=== PATIENT | male | born 1940 | race Caucasian/White ===

== ENCOUNTER 2020-09-13 15:04 | Inpatient (IN) | payer OTHER, BC ==
[~2020-09-13] VITALS: Ht 177.8 cm; Wt 63.4 kg
[2020-09-13] VITALS (12 sets, daily range): BP systolic 74–116; BP diastolic 48–81
--- NOTE | ~2020-09-13 | HC ---
[facility] [place] [address] CONSULTATION Name: ADDI CADENA Room #: 361-P [facility] IN ..#: [id number] Admission: 09/13/20 Attend Phys: Flaca Finley MD Discharge: Date of : 40 Report #: [id number] THIS REPORT FOR: cc: Charan Garcia MD, Curtis MD [place],Adrián Vargas MD ~ DATE OF SERVICE: 09/19/2020 HISTORY OF PRESENT ILLNESS: The patient is an 80-year-old male who has a past history known for temporal cavernous hemangioma, status post lesionectomy, history of seizure disorder, history of bladder cancer, status post surgery, extensive tobacco abuse, was airlifted to our facility as a code STEMI. He was noted to have a non-ST elevation WI, acute hypoxic respiratory failure, cardiomyopathy with questionable Takotsubo. He has had paroxysmal atrial fibrillation with elevated heart rates. He is on a tapering dose of amiodarone. He has been closely followed by Cardiology and Pulmonary. We are seeing him in rehabilitation medicine consultation. PAST MEDICAL HISTORY: Includes the brain surgery, temporal cavernous hemangioma, status post lesionectomy back in 2008. He has a history of bladder cancer, status post urostomy in 2008, history of tobacco abuse. History of skin cancers. MEDICATIONS: Please see the full medication listing. ALLERGIES: CONTRAST DYE. SOCIAL HISTORY: Lives with his , house 2-3 steps in, premorbid community ambulator. works 4 days a week. There were 2 sons and one apparently lives close. REVIEW OF SYSTEMS: Did not offer any current complaints of chest pain, shortness of breath or abdominal discomfort. PHYSICAL EXAMINATION: GENERAL: An 80-year-old thin white male in no obvious distress. VITAL SIGNS: Last recorded temperature 36.4, pulse 60, respirations 18, blood pressure 94/55. The patient is alert, pleasant, oriented. He follows basic 1 step commands. HEENT: Facies are symmetric. EXTREMITIES: He has some decreased end range of both upper extremities. He has had a prior left ring finger amputation. Upper body strength is probably a grade 4-/5. He has the urostomy with bag. In his lower extremities, there is no focal calf swelling. His strength is probably a grade 4-/5. Tone appeared reasonably intact. He was able to sit to stand for me. Initially, had some [facility] [address] [place] [address] CONSULTATION Name: ADDI CADENA Jewels Room #: 361-P [facility] IN [facility]#: [id number] Admission: 09/13/20 Attend Phys: Flaca Finley MD Discharge: Date of : 40 Report #: [id number] decreased balance with slight retropulsion. Once up, he had reasonable standing balance. He has a rather wide base. During his last physical therapy visit, he was noted to be min assist sit to stand. ASSESSMENT: An 80-year-old white male with the following problem list: 1. Medical complexity with generalized debilitation. 2. Acute respiratory failure. 3. Severe cardiomyopathy. 4. Non-ST elevation myocardial infarction. 5. Acute chronic obstructive pulmonary disease exacerbation. 6. Community-acquired pneumonia. 7. Hyponatremia. 8. Acute renal insufficiency with likely chronic kidney disease. 9. History of seizure disorder with prior resection of a temporal meningioma. 10. Wedge-shaped perfusion defect and V/Q scan. 11. Bladder cancer with prior urostomy. 12. Nicotine dependence. 13. Prior history of tobacco abuse. PLAN: The patient is a candidate for an acute [address] [place] [address] inpatient rehabilitation stay. Can plan on [address] [place] [address] Rehab transfer when medically ready and a bed available. Discussed with the patient and . By: [id number] Adrián Nagel MD /nt
[2020-09-13] MEDS ORDERED: LAMOTRIGINE25 M3 PO (15:16)
[2020-09-13] MEDS ORDERED: TRAZODONE HCL100 MG PO (15:17)
[2020-09-13] MEDS ORDERED: ASTHALIN PO (15:18)
[2020-09-13] MEDS ORDERED: KEPPRA 500 MG500 MG PO (15:20)
[2020-09-13 15:31] LABS: ABSOLUTE NEUTROPHILS 11.5 thou/uL (1.4-8.2); BASOPHILS 0.7 % (0.0-2.0); EOSINOPHILS 0.4 % (0.0-3.0); HEMATOCRIT 42.4 % (42.0-52.0); HEMOGLOBIN 13.8 gm/dL (14.0-18.0); LYMPHOCYTES 14.6 % (24.0-44.0); MCH 29.9 pg (26.0-34.0); MCHC 32.6 g/dL (28.0-37.0); MCV 91.9 fL (80.0-100.0); MONOCYTES 6.4 % (1.0-8.0); PLATELET COUNT 300 thou/uL (150-400); POLYS 77.9 % (36.0-66.0); RBC 4.61 mil/uL (4.50-6.00); RDW 14.1 % (10.5-14.5); WBC 14.8 thou/uL (4.0-11.0)
[2020-09-13 15:37] LABS: CALCIUM 8.9 mg/dL (8.5-10.1); CREATININE 1.6 mg/dL (0.7-1.3); POTASSIUM 4.4 mmol/L (3.5-5.1)
[2020-09-13 15:47] LABS: ALBUMIN 4.1 g/dL (3.4-5.0); TOTAL BILIRUBIN 0.5 mg/dL (0.2-1.0); TOTAL PROTEIN 7.5 g/dL (6.4-8.2)
[2020-09-13 15:49] LABS: TROPONIN-I 1.09 ng/mL (<0.06)
--- NOTE | 2020-09-13 16:22 | EKG ---
[address] [address] ELECTROCARDIOGRAM REPORT Name: ADDI CADENA [facility]: [facility] [id number] Admission: 09/13/20 Attend Phys: Discharge: Date of : 40 Report #: [id number] [facility] ED Test Date: 2020-09-13 Test Time: 15:10:49 Pat Name: ADDI CADENA Department: Room: Gender: K 8 School Principal: JCMANDI : 1940 Requested By: Adrián Dumont Order Number: [id number] MD: Tunde Chaney Measurements Intervals [place] Rate: 117 P: 84 [place]: 166 QRS: 182 QRSD: 111 T: 75 QT: 328 QTc: 458 Interpretive Statements Sinus tachycardia RBBB Lateral leads are also involved No previous ECG available for comparison Electronically Signed On 09-13-2020 16:22:07 CITY CARRIER ASSISTANT by Tunde Chaney [email or web address] <ELECTRONICALLY SIGNED> By: Tunde Chaney MD 09/13/20 1622 1510 1510 Tunde Chaney MD /EPI
[2020-09-13 16:39] LABS: BE(vivo) -8.3 mmol/L (-2 to +3); HCO3 18.9 mmol/L (22.0-26.0); PCO2 45.1 mmHg (35.0-45.0); sO2 99.2 % (92.0-98.0)
[2020-09-13 16:41] LABS: D-DIMER 0.74 ug/mLFEU (0.19-0.50)
[2020-09-13 17:51] LABS: FOLIC ACID 9.2 ng/mL (8.6-58.9)
[2020-09-13 18:07] LABS: PROTIME 10.4 Seconds (9.3-11.4)
[2020-09-13 18:32] LABS: HEMATOCRIT 38.1 % (42.0-52.0); HEMOGLOBIN 12.4 gm/dL (14.0-18.0); MCH 30.1 pg (26.0-34.0); MCHC 32.6 g/dL (28.0-37.0); MCV 92.4 fL (80.0-100.0); RBC 4.12 mil/uL (4.50-6.00); RDW 14.2 % (10.5-14.5); WBC 14.6 thou/uL (4.0-11.0)
--- NOTE | 2020-09-13 20:32 | NUR ---
A RIGHT UPPER ARM TRIPLE LUMEN PICC WAS PLACED PER POLICY. LINE WAS TRIMMED TO 44CM AND ADVANCED WITHOUT DIFFICULTY. CONFIRMED LINE USING 3CG CONFIRMATION AT THE CAVOATRIAL JUNCTION. LINE SECURED AND RELEASED FOR USE
[2020-09-13 21:31] LABS: BE(vivo) -9.7 mmol/L (-2 to +3); HCO3 18.7 mmol/L (22.0-26.0); PCO2 50.9 mmHg (35.0-45.0); PO2 127.4 mmHg (80.0-100.0); sO2 97.7 % (92.0-98.0)
[2020-09-13 21:32] LABS: pH 7.184 (7.360-7.450)
[2020-09-13 23:44] LABS: BE(vivo) -5.4 mmol/L (-2 to +3); HCO3 21.6 mmol/L (22.0-26.0); PCO2 47.5 mmHg (35.0-45.0); PO2 101.7 mmHg (80.0-100.0); sO2 96.9 % (92.0-98.0)
[2020-09-13 23:46] LABS: pH 7.275 (7.360-7.450)
[2020-09-14] VITALS (27 sets, daily range): BP systolic 84–118; BP diastolic 48–78
--- NOTE | 2020-09-14 00:07 | NUR ---
ASSUMED PT CARE AT 1954 FROM ER. VITAL SIGNS STABLE, PT ORIENTED TO SELF ALONE AND MUMBLING SOME INCOMPRREHENSIBLE SOUNDS. REACTS TO PAINFUL STIMULI AND FOLLOWS SOME COMMANDS. CALLER DR ESTEBAN FO ORDERS PER PH, PT STARTED ON IVT AT 100MLR AFTER AN INITIAL BOLUS OF 250. BP CAME UP, PT RESTING WELL, ABG SLIGHLTLY BETTER AFTER BICARB. WILLC INTINUE TO MONITOR
--- NOTE | 2020-09-14 03:15 | NUR ---
During RN's AM assessment patients neuro status has improved significantly. Able to answer orientation questions. Follow all commands. Carries on conversations appropriately and very pleasant. Will continue to monitor.
[2020-09-14 05:07] LABS: BE(vivo) -4.7 mmol/L (-2 to +3); HCO3 21.2 mmol/L (22.0-26.0); PO2 149.5 mmHg (80.0-100.0); sO2 98.8 % (92.0-98.0)
[2020-09-14 05:52] LABS: ABSOLUTE NEUTROPHILS 9.5 thou/uL (1.4-8.2); BASOPHILS 0.2 % (0.0-2.0); HEMATOCRIT 37.8 % (42.0-52.0); HEMOGLOBIN 12.5 gm/dL (14.0-18.0); LYMPHOCYTES 5.8 % (24.0-44.0); MCH 30.3 pg (26.0-34.0); MONOCYTES 2.9 % (1.0-8.0); PLATELET COUNT 206 thou/uL (150-400); POLYS 91.1 % (36.0-66.0); RBC 4.11 mil/uL (4.50-6.00); WBC 10.4 thou/uL (4.0-11.0)
[2020-09-14 06:17] LABS: BUN 24 mg/dL (7-18); CALCIUM 7.5 mg/dL (8.5-10.1); CHLORIDE 106 mmol/L (98-107); CHOLESTEROL 171 mg/dL (<200); CO2 25 mmol/L (21-32); CREATININE 1.6 mg/dL (0.7-1.3); GLUCOSE 145 mg/dL (74-106); HDL CHOLESTEROL 51 mg/dL (>40); LDL CHOLESTEROL 113 mg/dL (<100); MAGNESIUM 1.8 mg/dL (1.8-2.4); POTASSIUM 4.9 mmol/L (3.5-5.1); TC:HDL 3.4 Ratio (Not establshd); TRIGLYCERIDE 38 mg/dL (<150); VLDL 8 mg/dL (<40)
[2020-09-14 06:19] LABS: ANION GAP 10 mmol/L (7-16)
[2020-09-14 06:20] LABS: SODIUM 141 mmol/L (136-145)
[2020-09-14 06:21] LABS: SERUM ASSESSMENT Clear; TROPONIN-I 3.24 ng/mL (<0.06)
--- NOTE | 2020-09-14 07:00 | EKG ---
[address] [address] ELECTROCARDIOGRAM REPORT Name: ADDI CADENA Room #: 241-P ADM IN M.R.#: [id number] Admission: 09/13/20 Attend Phys: Flaca Finley MD Discharge: Date of : 40 Report #: [id number] [facility] ED Test Date: 2020-09-13 Test Time: 17:06:34 Pat Name: ADDI CADENA Department: Room: 241 Gender: M Grainer Machine: AUDREY : 1940 Requested By: Adrián Dumont Order Number: [id number] : Les Ramires Measurements Intervals [place] Rate: 108 P: 77 [place]: 171 QRS: -90 QRSD: 121 T: 77 QT: 334 QTc: 448 Interpretive Statements Sinus tachycardia Right bundle branch block Compared to ECG 09/13/2020 15:10:49 No significant change Electronically Signed On 09-14-2020 7:00:03 SOCIAL WORK FACULTY MEMBER by Les Ramires [email or web address] <ELECTRONICALLY SIGNED> By: Les Ramires MD, [facility] 09/14/20 0700 1706 1706 Les Ramires MD, FACC /EPI
--- NOTE | 2020-09-14 07:01 | EKG ---
[address] [place] [address] ELECTROCARDIOGRAM REPORT Name: ADDI CADENA Room #: 241-P ADM IN M.R.#: [id number] Admission: 09/13/20 Attend Phys: Flaca Finley MD Discharge: Date of : 40 Report #: [id number] [facility] ED Test Date: 2020-09-13 Test Time: 18:52:36 Pat Name: ADDI CADENA Department: Room: 241 Gender: M Hand Suture Winder: JCHAITAWNY : 1940 Requested By: Adrián Dumont Order Number: [id number] MD: Les Ramires Measurements Intervals [place] Rate: 101 P: 85 [place]: 173 QRS: -93 QRSD: 130 T: 63 QT: 335 QTc: 435 Interpretive Statements Sinus tachycardia Right bundle branch block PROBABLE INFERIOR INFARCT, AGE INDETERMINATE Artifact in lead(s) V4,V5 Compared to ECG 09/13/2020 17:06:34 ST (T wave) deviation now present Myocardial infarct finding still present Electronically Signed On 09-14-2020 7:00:57 PAPER MILL MANAGER by Les Ramires [email or web address] <ELECTRONICALLY SIGNED> By: Les Ramires MD, FACC 09/14/20 0700 51 51 Les Ramires MD, FAC /EPI
--- NOTE | 2020-09-14 14:31 | NUR ---
chart review, pt in from [facility]. unable to visit with ronel at this time. discussed during am rounds. cm called kourtney at home, she had already been her for her 15 min visit. intro to cm and dcp. reports " house, he no longer goes to basement. no longer drives. he uses [facility] for his urostomy and provides other urostomy care. no dme. had hh in past but not in while. he manage own medications. i want to be there when he has hear cath so i want to talk with his dr and someone to call be so i can be there when get the cath"/ kourtney. elma passed on number to hospitalist and bedside nurse to notify .
--- NOTE | 2020-09-14 15:02 | NUR ---
ASSUMED CARE AT 0700. PATIENT'S , SANTANA, CAME TO VISIT FROM [id number] AND SHE WENT INTO PATIENT'S ROOM AND TALKED WITH THE PATIENT. BROUGHT DPOA/ADVANCED DIRECTIVE PAPERWORK. COPIES OF BOTH MADE AND PLACED IN PATIENT'S CHART.
[2020-09-14 17:51] LABS: URINE BILIRUBIN NEGATIVE (Negative); URINE BLOOD TRACE (Negative); URINE CLARITY CLEAR; URINE COLOR YELLOW; URINE GLUCOSE-RANDOM* NEGATIVE (Negative); URINE KETONES NEGATIVE (Negative); URINE NITRITE-REFLEX NEGATIVE (Negative); URINE PROTEIN (DIPSTICK) NEGATIVE (Negative); URINE UROBILINOGEN 0.2 E.U./dl (0.2-1.0)
[2020-09-14 17:53] LABS: URINE LEUKOCYTES-REFLEX 1+ (Negative)
[2020-09-14 17:58] LABS: BACTERIA-REFLEX 1-9 Few /HPF (None Seen); CASTS None Seen /LPF (None Seen); SQUAMOUS 0-3 Few /LPF (0-3); URINE RBC 0-2 Rare /HPF (0-2); URINE WBC-REFLEX 6-15 Few /HPF (0-5)
[2020-09-14 17:59] LABS: CRYSTALS None Seen /LPF (None Seen)
[2020-09-15] VITALS (29 sets, daily range): BP systolic 81–116; BP diastolic 47–73
[2020-09-15 02:25] LABS: BE(vivo) -0.6 mmol/L (-2 to +3); HCO3 22.5 mmol/L (22.0-26.0); PCO2 32.2 mmHg (35.0-45.0); PO2 67.2 mmHg (80.0-100.0); pH 7.463 (7.360-7.450); sO2 94.6 % (92.0-98.0)
[2020-09-15 05:28] LABS: CALCIUM 8.1 mg/dL (8.5-10.1); CREATININE 1.6 mg/dL (0.7-1.3)
[2020-09-15 05:31] LABS: POTASSIUM 3.5 mmol/L (3.5-5.1)
--- NOTE | 2020-09-15 18:05 | NUR ---
PT HAD ACUTE DELIRIUM TYPE EPISODE TODAY IN WHICH HE PULLED AN IV OUT, WAS HAVING HALLUCINATIONS AND WAS VERY CONFUSED. ATIVAN WAS GIVEN WHICH MADE HIS DELIRIUM WORSE. HALDOL WAS THEN GIVEN WHICH SEEMED TO HELP. THE PT NAPPED AND WOKE UP MUCH MORE CALM AND BREATHING EASIER. AT BEDSIDE STATED THAT MR. CADENA HAS BEEN MILDLY CONFUSED WITH INTERMITTENT HALLUCINATIONS FOR A WHILE AT HOME. PT REMAINED ON O2 BY NC ALL DAY. DIURESED WELL. POOR APPETITE, BUT STATES MR. CADENA IS A PICKY EATER. OVERALL, DECREASED WORK OF BREATHING NOTED WITH DIMINISHED ORTHOPNEA AND RESTLESSNESS. PT REMAINS IMPULSIVE, FORGETFUL AND MODERATELY CONFUSED. OVERALL, PT PROGRESSING MODESTLY TOWARD GOALS.
--- NOTE | 2020-09-15 20:36 | NUR ---
THIS RN CALLED Bimal TREJO NP AT 1951 TO REPORT HR 130-165, ST WITH RBBB AFTER EKG WAS OBTAINED. PT DEINED SYMPTOMS OF CHEST PAIN OR SOA. BP 95/65 AND 95/55 NO NEW ORDERS RECIEVED AT THIS TIME.
--- NOTE | 2020-09-15 22:02 | NUR ---
THIS RN CALLED DR QUIJANO WITH CARDIOLOGY FOR REPORT HR 130-170. MD AWARE EKG SHOWS ST WITH RBBB. ASYMPTOMATIC. ONE TIME ORDER FOR METOPROLOL 25MG NOW AND INCREASE DAILY DOSE TO 25MG.
[2020-09-16] VITALS (26 sets, daily range): BP systolic 78–99; BP diastolic 42–64
--- NOTE | 2020-09-16 00:38 | NUR ---
JUST AFTER BREATHING TREAMTENT PATIENT WAS AWAKE AND CONFUSED, TRIED GETTING UP OUT OF BED. WAS SEETLED BY NURSES X 2. CONTINUED TO MONITOR CLOSLY FOR HIGH FALL RISK, AND GETTING OUT OF BED. AFTER ABOUT 15 MIN, PATIENT WAS ABLE TO FALL ASLEEP AGAIN. PATENT HAS HAD TRAZADONE, AND HAD BASELINE CONFUSION, WITH HALLUCINATIONS.
[2020-09-16 05:11] LABS: BE(vivo) 3.6 mmol/L (-2 to +3); HCO3 27.5 mmol/L (22.0-26.0); PCO2 39.2 mmHg (35.0-45.0); PO2 141.9 mmHg (80.0-100.0); pH 7.464 (7.360-7.450); sO2 98.9 % (92.0-98.0)
[2020-09-16 05:26] LABS: ABSOLUTE NEUTROPHILS 8.4 thou/uL (1.4-8.2); HEMATOCRIT 31.8 % (42.0-52.0); HEMOGLOBIN 10.6 gm/dL (14.0-18.0); LYMPHOCYTES 5.2 % (24.0-44.0); MCH 30.4 pg (26.0-34.0); MCHC 33.4 g/dL (28.0-37.0); MONOCYTES 4.9 % (1.0-8.0); PLATELET COUNT 185 thou/uL (150-400); POLYS 89.9 % (36.0-66.0); RBC 3.49 mil/uL (4.50-6.00); RDW 14.2 % (10.5-14.5); WBC 9.3 thou/uL (4.0-11.0)
[2020-09-16 05:41] LABS: ALBUMIN 2.9 g/dL (3.4-5.0); CREATININE 1.4 mg/dL (0.7-1.3); POTASSIUM 3.9 mmol/L (3.5-5.1); TOTAL BILIRUBIN 0.3 mg/dL (0.2-1.0)
--- NOTE | 2020-09-16 06:18 | NUR ---
PATEIENT PROGRESSING TOWARDS GOALS, HEPARIN GTT TITRATION AT GOAL. HEART RATE 90'S. DOWN FROM 4L/NC TO 3/NC OXYGEN. POTASSIUM WITH IN NRMAL RANGE WITH OUT BOLUS THIS AM.
--- NOTE | 2020-09-16 09:00 | NUR ---
ASSUMMED CARE OF THIS PATIENT FROM BAUTISTA CABRERA AT 0700 THIS AM. PATIENT IS ALERT, FINE TREMORS OCC NOTED. CALM AND COOPERATIVE. WILL CONTINUE TO MONITOR.
--- NOTE | 2020-09-16 14:30 | NUR ---
PATIENT NOTED TO BE HYPOTENSIVE. METOPOROL HELD THIS AM. DR LEWIS IN AND AWARE AND DR ESTEBAN NOTIFIED. CVP SET UP AND READING OF 4-[address] ESTEBAN. NS BOLUS INFUSING PER ORDER. AT BEDSIDE. PATIENT IS ALERT AND FEEDING SELF, UP IN THE CHAIR. WILL CONTINUE TO MONITOR.
--- NOTE | 2020-09-16 18:34 | NUR ---
PATIENT IS PROGRESSING TOWARDS OUTCOME GOALS. DENIES HALLUCINATIONS. CALM AND COOPERATIVE. UP IN THE CHAIR MOST OF THE DAY. UNSTEADY WHEN STANDING AND TRANSFERING TO THE BED. BP SL IMPROVED WITH MAP GREATER THAN 65 MM[facility].
[2020-09-17] VITALS (25 sets, daily range): BP systolic 62–116; BP diastolic 36–79
[2020-09-17 03:13] LABS: CALCIUM 8.2 mg/dL (8.5-10.1); CREATININE 1.6 mg/dL (0.7-1.3)
--- NOTE | 2020-09-17 10:56 | NUR ---
chart review. discussed during rounds. hospitalist in visiting with and pt at bedside. possible out of icu and possible will need home o2 if dc home. possible will need rehab. cm discussed with jazlyn at bedside. cm cont to wear face mask and shield. education on home health, post acute rehab and acute rehab " i would like [facility] for rehab. its over hr drive here for me to visit him"/kourtney. referral to be sent to [facility].
--- NOTE | 2020-09-17 14:59 | EKG ---
[address] [place] [address] ELECTROCARDIOGRAM REPORT Name: MORRIS CADENARAMILA Donis Room #: 241-P ADM IN M.R.#: [id number] Admission: 09/13/20 Attend Phys: Flaca Finley MD Discharge: Date of : 40 Report #: [id number] [facility] Test Date: 2020-09-17 Test Time: 08:17:23 Pat Name: ADDI CADENA Department: Room: 241 P Gender: M Care Worker: GEM : 1940 Requested By: Terry Dean Order Number: [id number] MD: Tunde Chaney Measurements Intervals [place] Rate: 88 P: 66 [place]: 169 QRS: 44 QRSD: 135 T: -72 QT: 365 QTc: 442 Interpretive Statements Sinus rhythm Probable left atrial enlargement Right bundle branch block Abnormal T, consider ischemia, lateral leads Compared to ECG 09/13/2020 18:52:36 Electronically Signed On 09-17-2020 14:58:56 CDT by Tunde Chaney [email or web address] <ELECTRONICALLY SIGNED> By: Tunde Chaney MD 09/17/20 1458 6 6 Tunde Chaney MD /JUDD
--- NOTE | 2020-09-17 15:33 | NUR ---
FAXED CLINICAL UPDATE TO [facility] RECEIVED CONFIRMATION.
[2020-09-18] VITALS (19 sets, daily range): BP systolic 75–135; BP diastolic 51–86
--- NOTE | 2020-09-18 04:00 | NUR ---
PATIENT REMAINS RESTLESS. ATTEMPTS TO GET OUT OF BED SEVERAL TIMES. PATIENT REORIENTED NEEDED. AFEBRILE. AT APPROX 0220 PATIENT HR 140-150S. PROFESSOR OF LITERACY NOTIFIED. NO NEW ORDERS GIVEN. WILL KEEP MONITORING.
[2020-09-18 05:28] LABS: CALCIUM 8.8 mg/dL (8.5-10.1); CREATININE 1.5 mg/dL (0.7-1.3); POTASSIUM 4.3 mmol/L (3.5-5.1)
--- NOTE | 2020-09-18 07:19 | EKG ---
[place] [address] [facility] [place] [employer] [place] [address] ELECTROCARDIOGRAM REPORT Name: MORRIS CADENARAMILA Donis Room #: 246-P ADM IN M.R.#: [id number] Admission: 09/13/20 Attend Phys: Flaca Finley MD Discharge: Date of : 40 Report #: [id number] [facility] Test Date: 2020-09-18 Test Time: 02:31:18 Pat Name: ADDI CADENA Department: Room: 246 P Gender: M Elevator Serviceman: SV : 1940 Requested By: Melva Colilns Order Number: [id number] : Les Ramires Measurements Intervals [place] Rate: 141 P: DE: QRS: 66 QRSD: 132 T: -5 QT: 302 QTc: 463 Interpretive Statements AFIB Right bundle branch block Baseline wander in lead(s) V1 Compared to ECG 09/17/2020 08:17:23 Sinus rhythm no longer present T-wave abnormality no longer present Possible ischemia no longer present Electronically Signed On 09-18-2020 7:19:36 CDT by Les Ramires [email or web address] <ELECTRONICALLY SIGNED> By: Les Ramires MD, [facility] 09/18/20 0719 0231 0231 Les Ramires MD, [facility] /EPI
--- NOTE | 2020-09-18 10:45 | NUR ---
discussed during rounds with bedside nurse. cm checked with hospitalist, he is ready for dc to rehab. updates sent to [facility] bed, he will need to be there before 3pm. will cont following as needed for dc needs.
[2020-09-18] MEDS ORDERED: KEPPRA 500 MG500 MG PO (11:24)
[2020-09-18] MEDS ORDERED: PREDNISONE 20 M20 MG PO (11:24)
[2020-09-18] MEDS ORDERED: XARELTO15 MG PO ×2 (11:24→12:56)
[2020-09-18] MEDS ORDERED: XARELTO20 MG PO (11:24)
[2020-09-18] MEDS ORDERED: METOPROLOL SUCC25 M1 PO (11:24)
[2020-09-18] MEDS ORDERED: LEVALBUTER1.25 MG/0. INH (11:24)
[2020-09-18] MEDS ORDERED: VITAMIN D21250 MC1 PO (11:24)
[2020-09-18] MEDS ORDERED: NITROGLYCERIN0.4 MG SUBLING (11:24)
[2020-09-18] MEDS ORDERED: ADULT LOW DOSE81 MG PO (11:24)
[2020-09-18] MEDS ORDERED: PACERONE 200 M200 M1 PO ×2 (11:24→12:56)
[2020-09-18] MEDS ORDERED: PROTONIX 20 MG20 M1 PO (11:24)
[2020-09-18] MEDS ORDERED: DEMADEX20 MG PO ×2 (11:24→12:56)
[2020-09-18] MEDS ORDERED: LIPITOR40 MG PO (11:24)
[2020-09-18] MEDS ORDERED: MIRALAX17 GM PO (11:24)
--- NOTE | 2020-09-18 16:10 | NUR ---
cm notified that [facility] will not accept rt, been on haldol, still in icu, and been there in past and was at baseline, they were getting ready to dc him home. cm education that medsurg not icu. cm called kourtney, cm left skilled list and 5n consult. will cont following as needed for dc needs. cm passed on information to hospitalist and bedside nurse.
--- NOTE | 2020-09-18 16:49 | NUR ---
PT'S , SANTANA, CALLED AND NOTIFIED OF PT TRANSFER TO ROOM 361. QUESTIONS ANSWERED. REASSURANCES AND EMOTIONAL SUPPORT PROVIDED.
--- NOTE | 2020-09-18 16:50 | NUR ---
PT TRANSFERRED TO ROOM 361 VIA WC IN STABLE CONDITION AFTER REPORT CALLED TO RECEIVING RN. PT BELONGINGS AND CHART SENT WITH PT.
[2020-09-19 00:03] VITALS: BP 100/58
[2020-09-19 03:39] VITALS: BP 97/58
[2020-09-19 07:46] VITALS: BP 107/63
--- NOTE | 2020-09-19 08:16 | TEE ---
[facility] [address] [place] [address] TRANSESOPHAGEAL ECHOCARDIOGRAM Name: ADDI CADENA Jewels Room #: 361-P ADM IN M.R.#: [id number] Admission: 09/13/20 Attend Phys: Flaca Finley MD Discharge: Date of : 40 Report #: [id number] THIS REPORT FOR: cc: Charan Garcia MD, Curtis MD [place],Geovani Arias MD ~ APPROVED REPORT Study performed: 09/14/2020 08:30:11 EXAM: Comprehensive 2D, Doppler, and color-flow Echocardiogram Patient Location: ICU Room #: 241 Status: routine BSA: 1.79 HR: 98 bpm BP: 116/75 mmHg Rhythm: NSR Other Information Study Quality: Adequate Indications COPD Dyspnea 2D Dimensions RVDd: 37.69 mm IVSd: 7.73 (7-11mm) LVOT Diam: 18.17 (18-24mm) LVDd: 49.83 mm PWd: 6.58 (7-11mm) Ascending Ao: 27.67 (22-36mm) LVDs: 39.88 (25-40mm) Left Atrium: 29.15 (27-40mm) Aortic Root: 23.62 mm IVC: 25.00 mm Volumes Left Atrial Volume (Systole) Single Plane 4CH: 26.89 mL Single Plane 2CH: 26.25 mL LA ESV Index: 17.00 mL/m2 Aortic Valve AoV Peak Carloz.: 0.93 m/s AO Peak Gr.: 3.43 mmHg LVOT Max P.53 mmHg LVOT Max V: 0.62 m/s [facility] [address] [place] [address] TRANSESOPHAGEAL ECHOCARDIOGRAM Name: ADDI CADENA Room #: 361-P [facility] IN [facility].#: [id number] Admission: 09/13/20 Attend Phys: Zoya Cote Discharge: Date of : 40 Report #: [id number] Vmax: 1.73 cm2 Mitral Valve E/A Ratio: 1.6 MV Decel. Time: 118.67 ms MV E Max Carloz.: 0.90 m/s MV A Carloz.: 0.55 m/s MV PHT: 34.41 ms IVRT: 69.20 ms Pulmonary Valve PV Peak Carloz.: 1.05 m/s PV Peak Gr.: 4.37 mmHg Pulmonary Vein P Vein S: 0.16 m/s P Vein A: 0.34 m/s P Vein D: 0.34 m/s P Vein A Dur.: 92.3 msec P Vein S/D Ratio: 0.47 Tricuspid Valve TR Peak Carloz.: 3.25 m/s TR Peak Gr.: 42.20 mmHg PA Pressure: 52.00 mmHg Left Ventricle The left ventricle is normal size. There is hypokinesis in the mid to apical anteroseptal and distal inferior easton. There is normal left ventricular wall thickness. Left ventricular systolic function is moderate to severely decreased. Possible Takotsubo cardiomyopathy. LVEF is 35%. Grade II - pseudonormal filling dynamics. Right Ventricle The right ventricle is normal size. The right ventricular systolic function is normal. Atria The left atrium size is normal. The right atrium size is normal. Aortic Valve The aortic valve is normal in structure. No aortic regurgitation is present. There is no aortic valvular stenosis. Mitral Valve The mitral valve is normal in structure. There is no mitral valve regurgitation noted. No evidence of mitral valve stenosis. [facility] [address] [place] [address] TRANSESOPHAGEAL ECHOCARDIOGRAM Name: ADDI CADENA Jewels Room #: 361-P ADM IN .R.#: [id number] Admission: 09/13/20 Attend Phys: Zoya Cote Discharge: Date of : 40 Report #: [id number] Tricuspid Valve The tricuspid valve is normal in structure. There is mild tricuspid regurgitation. Estimated PAP 50 mmHg. There is moderate pulmonary hypertension. Pulmonic Valve The pulmonary valve is normal in structure. There is no pulmonic valvular regurgitation. Great Vessels The aortic root is normal in size. IVC is dilated and collapses <50% with inspiration. Pericardium There is no pericardial effusion. <Conclusion> The left ventricle is normal size. There is normal left ventricular wall thickness. Left ventricular systolic function is moderate to severely decreased. Possible Takotsubo cardiomyopathy. The right ventricle is normal size. The left atrium size is normal. The aortic valve is normal in structure. There is no mitral valve regurgitation noted. There is mild tricuspid regurgitation. Estimated PAP 50 mmHg. <ELECTRONICALLY SIGNED> By: Geovani Walsh MD 09/14/20 1020 1020 1020 Geovani Walsh MD /INF
--- NOTE | 2020-09-19 08:22 | NUR ---
kourtney called stated she had spoken with the kids and if ok for him to do rehab here that is what they want for 1st choice. family does not have 2nd choice. Vaughnn was notified to alia.
--- NOTE | 2020-09-19 09:02 | NUR ---
[facility] ADVANCED LETTER WITHIN PATIENTS CHART, WITH A PREFERRED SKILLED LIST IF NEEDED.
--- NOTE | 2020-09-19 10:03 | EKG ---
[place] [address] [facility] [place] [address] ELECTROCARDIOGRAM REPORT Name: ADDI CADENA Jewels Room #: 361-P ADM IN M.R.#: [id number] Admission: 09/13/20 Attend Phys: Flaca Finley MD Discharge: Date of : 40 Report #: [id number] [facility] Test Date: 2020-09-19 Test Time: 07:21:54 Pat Name: ADDI CADENA Department: Room: 361 P Gender: M Ash Collector: GEM : 1940 Requested By: Terry Dean Order Number: [id number] MD: Les Ramires Measurements Intervals [place] Rate: 57 P: 60 [place]: 155 QRS: -6 QRSD: 110 T: 237 QT: 445 QTc: 434 Interpretive Statements Sinus rhythm Probable left atrial enlargement RSR' in V1 or V2, right VCD or RVH Abnormal T, probable ischemia, lateral leads Compared to ECG 09/18/2020 02:31:18 Right ventricular hypertrophy now present RSR' in V1 or V2 now present T-wave abnormality now present Possible ischemia now present Atrial fibrillation no longer present Right bundle-branch block no longer present Electronically Signed On 09-19-2020 10:03:40 CDT by Les Ramires [email or web address] <ELECTRONICALLY SIGNED> By: Les Ramires MD, [facility] 09/19/20 1003 0 0 Les Ramires MD, [facility] /EPI
[2020-09-19 12:24] VITALS: BP 94/55
[2020-09-19 12:32] LABS: CREATININE 1.7 mg/dL (0.7-1.3)
--- NOTE | 2020-09-19 14:28 | NUR ---
DISCHARGE NOTE: SW reviewed chart and spoke with nursing and attending physician. Pt was transferred to 3W from ICU and is medically stable for discharge. [facility] consulted and can accept pt today. Pt will need repeat COVID test prior to discharge to [facility]. Test to be completed this afternoon. Pt to discharge to [facility] later today after COVID results are available. SW left voice messages for pt's , Lisa. PRISCILLA met with pt and at bedside to provide update. Both are agreeable with discharge plan. Rehab CM to follow and assist as needed with discharge planning.
[2020-09-19 19:59] VITALS: BP 110/59
[2020-09-19 20:29] VITALS: BP 110/59
--- NOTE | 2020-09-19 22:17 | NUR ---
PT IS TRANSFERRING TO [facility]. REPORT CALLED AND GIVEN TO JENINFER. FINISHING DISCHARGE PAPERWORK.
== END 2020-09-19 22:24 | DRG 871 ==
LOC: ER 15:04 → ICU 16:59 → EROBS 16:59 → ICU 19:50 → 3W 09-18 17:00
PROVIDERS: Emergency Medicine; Internal Medicine; Nurse Practitioner; Pediatrics; ADMIT Hospitalist; ATTEND Hospitalist
PROC: B548ZZA Ultrasonography of Superior Vena Cava, Guidance (ICD-10-PCS; principal; 2020-09-13)
PROC: 02HV33Z Insertion of Infusion Device into Superior Vena Cava, Percutaneous Approach (ICD-10-PCS; principal; 2020-09-13)
PROC: 5A09357 Assistance with Respiratory Ventilation, Less than 24 Consecutive Hours, Continuous Positive Airway Pressure (ICD-10-PCS; principal; 2020-09-13)
PROC: 5A09357 Assistance with Respiratory Ventilation, Less than 24 Consecutive Hours, Continuous Positive Airway Pressure (ICD-10-PCS; 2020-09-14)
PROC: B24BZZ4 Ultrasonography of Heart with Aorta, Transesophageal (ICD-10-PCS; 2020-09-14)
PROC: 5A09357 Assistance with Respiratory Ventilation, Less than 24 Consecutive Hours, Continuous Positive Airway Pressure (ICD-10-PCS; 2020-09-15)
DX: A41.9 Sepsis, unspecified organism (principal); J96.01 Acute respiratory failure with hypoxia; I21.4 Non-ST elevation (NSTEMI) myocardial infarction; I50.21 Acute systolic (congestive) heart failure; J18.9 Pneumonia, unspecified organism; R65.21 Severe sepsis with septic shock; N17.9 Acute kidney failure, unspecified; E87.1 Hypo-osmolality and hyponatremia; I51.81 Takotsubo syndrome; I42.9 Cardiomyopathy, unspecified; J44.1 Chronic obstructive pulmonary disease with (acute) exacerbation; J44.0 Chronic obstructive pulmonary disease with (acute) lower respiratory infection; T88.6XXA Anaphylactic reaction due to adverse effect of correct drug or medicament properly administered, initial encounter; G40.909 Epilepsy, unspecified, not intractable, without status epilepticus; D64.9 Anemia, unspecified; E55.9 Vitamin D deficiency, unspecified; F41.9 Anxiety disorder, unspecified; T50.8X5A Adverse effect of diagnostic agents, initial encounter; I48.0 Paroxysmal atrial fibrillation; Y82.8 Other medical devices associated with adverse incidents; Z20.822 Contact with and (suspected) exposure to COVID-19; Z85.828 Personal history of other malignant neoplasm of skin; Z85.51 Personal history of malignant neoplasm of bladder; Z79.899 Other long term (current) drug therapy; Z91.041 Radiographic dye allergy status; Z87.891 Personal history of nicotine dependence; Y92.89 Other specified places as the place of occurrence of the external cause
CPT/HCPCS: 10078; 10203; 10879; 27000

== ENCOUNTER 2020-09-19 13:37 | Inpatient (IN) | payer OTHER, BC ==
[~2020-09-19] VITALS: Ht 177.8 cm; Wt 61.6 kg
--- NOTE | ~2020-09-19 | HC ---
[facility] [place] [address] CONSULTATION Name: ADDI CADENA Room #: 514-P [facility] IN .R.#: [id number] Admission: 09/19/20 Attend Phys: Adrián Nagel MD Discharge: Date of : 40 Report #: [id number] THIS REPORT FOR: cc: Charan Garcia MD, Curtis MD Deutch,Michael Loving. PhD ~ DATE OF SERVICE: 09/23/2020 NEUROBEHAVIORAL STATUS EXAM ATTENDING PHYSICIAN: Adrián Nagel MD DIRECTOR INFORMATICS: Michael Helton, PhD CLINICAL PRESENTATION: The patient is an 80-year-old male admitted to the rehabilitation unit at [facility] for a comprehensive inpatient rehabilitation program. He was airlifted to the hospital after having experienced a heart attack. His medical problem list that includes chronic obstructive pulmonary disease, dyspnea, non-ST elevated myocardial infarction, current assessment for COVID-19, systemic inflammatory response syndrome. 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 A complete description of his medical condition and history can be found in his medical record. Neuropsychological consultation was requested to provide assistance in the assessment of cognitive and emotional status and to provide recommendations and services. Prior to this most recent admission, he was living at home with the assistance of his . The patient has 3 children. He is a high school graduate with 1 year of college. 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 His reports that she was managing medication, finances and nutrition. He has discontinued driving since __ following a bladder surgery in 2008. The patient has had significant cognitive deficits for the last 3-4 years. In 2018, he reported to have had two incidents of coding; once at the [facility] and then prior incident in another hospital that led to his transfer to the [facility] in 2003, he was diagnosed with a seizure disorder and also had blood clots. Difficulty with the names of her grandchildren are reported. TECHNIQUES UTILIZED: Clinical interview, review of medical records, staff consultation and behavioral observation, family interview -- , mini mental status exam 2 standard version and clock drawing. [facility] [address] [place] [address] CONSULTATION Name: ADDI CADENA Room #: 514-P [facility] IN .R.#: [id number] Admission: 09/19/20 Attend Phys: Adrián Nagel MD Discharge: Date of : 40 Report #: [id number] EXAMINATION FINDINGS: The patient was alert and cooperative with the assessment. He described being very short of breath prior to his hospitalization. He does not present with aphasia. Thoughts are logical and goal oriented. There is no evidence of thought disorder. He indicated symptoms to include memory, word finding deficits and decreased appetite. The patient does not report symptoms of depression or anxiety. Performance on the MMSE 2 brief version is extremely low with a raw score of 9/16. He was 3/3 for initial registration, 4/5 for orientation to time, 2/[address] and 0/3 for immediate recall of 3 items after a brief time delay and distraction. Performance on the MMSE 2 standard version was extremely low with a raw score of 20/30. He was 3/5 for serial sevens, 2/2 for naming, 1/1 for repetition, 3/3 for auditory comprehension. He could read and follow single command and write a sentence. The patient is not able to copy a simple geometric design. The patient was having trouble with clock drawing in regard to visual spatial construction. Executive dysfunction is suggested. The patient is presenting with severe deficits in memory and variability in orientation. Attention and concentration is poor along with visual spatial and perceptual deficits. This type of presentation suggests a neurodegenerative disorder, neurocognitive deficits, likely due to medical etiology including cardiomyopathy and vascular disease, seizure disorder may also be contributing. DIAGNOSTIC IMPRESSION: Major neurocognitive disorder (dementia) due to medical etiology including vascular disease and history of seizure disorder and history of temporal meningioma resection. It is clinically determined likely in the moderate range severe cognitive deficits. RECOMMENDATIONS: The patient had been at home by himself for extended periods of time. It may be that he will require supervision to maintain safety. Assistance with management of medication, finances and nutrition are necessary. Continued assistance in compensatory techniques and family education in order for him to maintain safety. Thank you very much for allowing me to provide the consultation on this patient. By: [id number] Michael Helton, PhD /nt
[~2020-09-19 13:37] MED LIST: ADULT LOW DOSE81 MG PO; ASTHALIN PO; DEMADEX20 MG PO; KEPPRA 500 MG500 MG PO; LAMOTRIGINE25 M3 PO; LEVALBUTER1.25 MG/0. INH; LIPITOR40 MG PO; METOPROLOL SUCC25 M1 PO; MIRALAX17 GM PO; NITROGLYCERIN0.4 MG SUBLING; PACERONE 200 M200 M1 PO; PREDNISONE 20 M20 MG PO; PROTONIX 20 MG20 M1 PO; TRAZODONE HCL100 MG PO; VITAMIN D21250 MC1 PO; XARELTO15 MG PO; XARELTO20 MG PO
[2020-09-19 22:50] VITALS: BP 110/64
--- NOTE | 2020-09-20 05:21 | NUR ---
PT ADMITTED TO [address] [place] [address] LATE THIS EVENING FROM [facility]. COVID TEST NEGATIVE BEFORE TRANSFER. PT DENIES ANY CHEST PAIN AT THIS TIME AND VSS. SAT 95% ON RA. SAT REMAINED WNL WITH EACH SPOT CHECK. ASST WITH REPOSITION FOR COMFORT. ADMIT HX AND ASSESSMENT COMPLETED. UROSTOMY DRAINING LARGE AMOUNT OF CLEAR YELLOW URINE. PT PICC LINE FLUSHED AND BLOOD DRAW COMPLETED IN THE MORNING. PT VERY IMPULSIVE AND TRYING TO CLIMB OUT OF BED FREQUENTLY DURING THE NIGHT. PT DID GET HIS SLEEP MEDICATION WHICH DID NOT WORK WELL. WILL CONTINUE TO MONITOR FREQUENTLY. PT VERY FORGETFUL.
[2020-09-20 05:46] LABS: HEMATOCRIT 35.5 % (42.0-52.0); HEMOGLOBIN 11.6 gm/dL (14.0-18.0); MCHC 32.6 g/dL (28.0-37.0); MCV 91.9 fL (80.0-100.0); RBC 3.87 mil/uL (4.50-6.00); RDW 14.3 % (10.5-14.5); WBC 13.5 thou/uL (4.0-11.0)
[2020-09-20 05:59] LABS: CALCIUM 8.6 mg/dL (8.5-10.1); CREATININE 1.8 mg/dL (0.7-1.3); POTASSIUM 3.8 mmol/L (3.5-5.1)
--- NOTE | 2020-09-20 12:15 | NUR ---
chart review. cm visited with pt and at bedside, cm cont to wear mask and face shield during visit. had her mask on as well. cm working with pt and while he was in icu here as well. they live in hose, 3 steps enter, 10 steps inside home. hh in past and been to [facility] bed [facility] in past. 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 leif was up in recliner for lunch, noted he was not eating cm, offered to see if could get him something else , offered yogurt " ice cream, all he likes, hard time tasting things for year now"/ kourtney. cm passed on to bedside nurse about meals and that at home he sleeps in recliner chair.
--- NOTE | 2020-09-20 12:56 | NUR ---
VASCULAR ACCESS NURSE ROUNDING. THIS PATIENT WAS TRANSFERED TO REHAB WITH A PICC LINE IN THE RIGHT UPPER ARM. THIS PATIENT IS NO LONGER ON IV MEDS. RECOMMEND REMOVING PICC TO DECREASE THE RISK OF A BLOOD STREAM INFECTION NOW THAT THE LINE IS NO LONGER NECESSARY.
[2020-09-20 19:54] VITALS: BP 83/45
--- NOTE | 2020-09-21 00:41 | NUR ---
PT ALERT AND ORIENTED X 2, CONFUSED AT TIMES. IMPULSIVE AT TIMES. UROSTOMY INTACT AND PATENT WITH CLEAR YELLOW URINE. RIGHT PICC LINE INTACT. PT DENIES PAIN OR DISCOMFORT. BED ALARM ON FOR SAFETY. PT APPEARS TO BE SLEEPING ON HOURLY ROUNDS.
[2020-09-21 07:33] VITALS: BP 113/64
--- NOTE | 2020-09-21 15:17 | NUR ---
PT ALERT AND ORIENTED TIMES FOUR. VSS. PT DENEIS PAIN/SOA. PT WORKED VERY WELL WITH PT/OT. PT TOLERATES MEDS AND MEALS. PT AT BEDSIDE. WILL CONTINUE TO MOONITOR.
[2020-09-21 20:00] VITALS: BP 95/41
[2020-09-22 04:56] LABS: HEMATOCRIT 37.5 % (42.0-52.0); HEMOGLOBIN 12.5 gm/dL (14.0-18.0); MCH 30.3 pg (26.0-34.0); MCHC 33.4 g/dL (28.0-37.0); MCV 90.8 fL (80.0-100.0); PLATELET COUNT 295 thou/uL (150-400); RBC 4.13 mil/uL (4.50-6.00); RDW 14.2 % (10.5-14.5); WBC 13.5 thou/uL (4.0-11.0)
--- NOTE | 2020-09-22 05:09 | NUR ---
RECIEVED CARE OF THIS PATIENT AT 1900. PATIENT ALERT AND ORIENTED X4. UP WITH SBA ONLY. IMPULSIVE AT TIMES. HAS UROSTOMY WHICH HE CARES FOR HIMSELF. PATENT WITH YELLOW URINE. HAS PERIODS OF CONFUSION. DENIES PAIN. SLEPT MOST OF NIGHT.
[2020-09-22 05:45] LABS: CALCIUM 8.6 mg/dL (8.5-10.1); CREATININE 1.9 mg/dL (0.7-1.3); MAGNESIUM 1.6 mg/dL (1.8-2.4); POTASSIUM 3.7 mmol/L (3.5-5.1)
[2020-09-22 06:38] LABS: ABSOLUTE NEUTROPHILS 11.7 thou/uL (1.4-8.2); PLATELET ESTIMATE NORMAL
[2020-09-22 08:41] VITALS: BP 96/56
--- NOTE | 2020-09-22 18:38 | NUR ---
PATIENT ALERT ORIENTED X4. UP TO RECLINER AND DOES NOT SEEM TO BE IN PAIN. HE BARELY EATS AND ONLY DRINKS DURING MEALS. ENCOURAGED TO NO AVAIL. WILL CONT WITH PLAN OF CARE.
[2020-09-22 19:39] VITALS: BP 117/94
--- NOTE | 2020-09-22 23:08 | NUR ---
PT REMEMBERED TO ASK FOR HIS MEDICATION THIS EVENING.
--- NOTE | 2020-09-23 00:28 | NUR ---
PT ASSESSMENT COMPLETED AND VSS. MEDS GIVEN ORDERED AND WELL TOLERATED. FALL PRECAUTIONS IN PLACE. PT STEADY IN THE ROOM WHEN UP MOD I. AT HS PT HAS A BED ALARM ON AND FALL PRECAUTIONS IN PLACE. PT TAKING CARE OF HIS OWN UROSTOMY AND ATTACHED IT TO A MILLER BAG. PT SLEEPING WELL AT THIS TIME. DENIES NEEDS. WILL CONTINUE TO MONITOR FREQUENTLY.
[2020-09-23 08:00] VITALS: BP 87/58
[2020-09-23 11:15] LABS: ABSOLUTE NEUTROPHILS 13.7 thou/uL (1.4-8.2); BASOPHILS 0.1 % (0.0-2.0); EOSINOPHILS 0.1 % (0.0-3.0); HEMATOCRIT 38.3 % (42.0-52.0); HEMOGLOBIN 12.6 gm/dL (14.0-18.0); LYMPHOCYTES 7.2 % (24.0-44.0); MCH 30.3 pg (26.0-34.0); MCHC 32.8 g/dL (28.0-37.0); MCV 92.5 fL (80.0-100.0); MONOCYTES 8.5 % (1.0-8.0); PLATELET COUNT 315 thou/uL (150-400); POLYS 84.1 % (36.0-66.0); RBC 4.14 mil/uL (4.50-6.00); RDW 14.6 % (10.5-14.5); WBC 16.3 thou/uL (4.0-11.0)
[2020-09-23 11:27] LABS: ALBUMIN 3.7 g/dL (3.4-5.0); CALCIUM 8.6 mg/dL (8.5-10.1); CREATININE 2.2 mg/dL (0.7-1.3); MAGNESIUM 1.6 mg/dL (1.8-2.4); POTASSIUM 3.4 mmol/L (3.5-5.1); TOTAL BILIRUBIN 0.5 mg/dL (0.2-1.0); TOTAL PROTEIN 6.6 g/dL (6.4-8.2)
--- NOTE | 2020-09-23 18:17 | NUR ---
PATIENT CONT TO SLEEP AT THIS TIME. RESPIRATIONS ARE EVEN AND UNLABORED. UP AD TRACI WITH MINIMAL ASSIST.
[2020-09-23 19:39] VITALS: BP 86/48
--- NOTE | 2020-09-23 22:25 | NUR ---
ASSUMED CARE OF PT AT 1900. PT IS A&OX4. IS ON ROOM AIR. DENIES PAIN. IS STABLE. IS UP WITH SBA, GB. REFUSES TO CALL FOR ASSISTANCE. PT IS IMPULSIVE. HAS STEADY GAIT. EDUCTION PROVIDED. FALL PRECAUTIONS & HOURLY ROUNDING CONTINUED THIS SHIFT. PT HAS UROSTOMY IN WHICH HE MAINTAINS. LABS & VITALS REVIEWED. WILL CONTINUE TO MONITOR. IS ACROSS FROM NURSE STATION. CALL LIGHT WITHIN REACH. WILL CONTINUE TO MONITOR.
[2020-09-24 05:20] LABS: HEMOGLOBIN 11.5 gm/dL (14.0-18.0)
[2020-09-24 05:22] LABS: MCH 30.3 pg (26.0-34.0); MCHC 32.8 g/dL (28.0-37.0); MCV 92.5 fL (80.0-100.0); PLATELET COUNT 279 thou/uL (150-400); RBC 3.79 mil/uL (4.50-6.00); RDW 14.8 % (10.5-14.5)
[2020-09-24 05:43] LABS: CALCIUM 8.1 mg/dL (8.5-10.1); CREATININE 2.1 mg/dL (0.7-1.3); MAGNESIUM 1.6 mg/dL (1.8-2.4); POTASSIUM 3.4 mmol/L (3.5-5.1)
[2020-09-24 08:00] VITALS: BP 87/50
[2020-09-24 08:37] LABS: ABSOLUTE NEUTROPHILS 8.4 thou/uL (1.4-8.2); PLATELET ESTIMATE NORMAL
--- NOTE | 2020-09-24 09:25 | NUR ---
PATIENT DID REMEMBER TO CALL FOR HIS AM BREAKFAST TIME MEDS, AND PT REPORTED THAT HE ALSO REMEMBERED HIS JOB CHECKER MED THAT IS FOR ACID REFLUX, WHICH HE WOULD HAVE TAKEN WITH THE PREVIOUS SHIFT RN.
--- NOTE | 2020-09-24 15:05 | NUR ---
CONSULT [id number] WAS COMPLETED BY THIS CEMENT MASON HELPER TODAY. PATIENT WAS NOT AVAILABLE ON 09/20/20.
--- NOTE | 2020-09-24 18:06 | NUR ---
REPORT GIVEN TO ONCOMING SHIFT. PT PARTICIPATED IN THERAPIES WELL. NO C/O PAIN, AND PT MANAGED OWN UROSTOMY, DISCUSSING WITH RN.
[2020-09-24 19:43] VITALS: BP 80/46
--- NOTE | 2020-09-25 01:35 | NUR ---
PT ALERT AND ORIENTED X 4. UROSTOMY INTACT WITH CLEAR YELLOW URINE. BP 80/46 AT HS. METOPROLOL HELD. ASYMPTOMATIC WITH LOW BP. PT DENIES PAIN OR DISCOMFORT. BED ALARM ON FOR SAFETY. PT APPEARS TO BE SLEEPING ON HOURLY ROUNDS.
[2020-09-25 07:10] VITALS: BP 104/64
--- NOTE | 2020-09-25 12:53 | NUR ---
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 mod/severe memory cog, fmla paperwork. mod I. dc , outpt pt only. mod/severe cog and memory. needs to follow up with pcp. should look into life alert, he been using cell phone to call family if needs help.
[2020-09-25] MEDS ORDERED: ELIQUIS2.5 MG PO (14:27)
--- NOTE | 2020-09-25 15:05 | PLAN ---
[facility] [place] [address] REHAB UNIT PLAN OF CARE Name: ADDI CADENA Room #: 514-P ADM IN M.R.#: [id number] Admission: 09/19/20 Attend Phys: Adrián Nagel MD Discharge: Date of : 40 Report #: [id number] THIS REPORT FOR: cc: Charan Garcia MD,Charan Nagel,Adrián Vargas MD ~ DATE OF SERVICE: 09/21/2020 PROGRESS NOTE/OVERALL PLAN OF CARE SUBJECTIVE: The patient is seen back today in followup. He is alert, pleasant. He notes, he is feeling better. Temperature 36.3, pulse 65, respirations 20, blood pressure 113/64. No focal calf swelling. He has a good appetite. He notes he is sleeping better. Transfers are supervision with gait standby assistance 300 feet without a device. He is going up and down 12 steps, standby assistance. Lower body dressing with supervision. Upper body dressing, min assist. He does have moderate comprehensive deficits. He has moderate cognitive deficits with severe memory deficits. ASSESSMENT: 1. Medical complexity with generalized debilitation. 2. Non-ST elevation myocardial infarction. 3. Acute respiratory failure with community-acquired pneumonia and acute exacerbation of chronic obstructive pulmonary disease. 4. Severe cardiomyopathy. 5. Acute renal insufficiency superimposed on chronic kidney disease. 6. Possible pulmonary embolism, on anticoagulation. 7. History of seizure disorder with history of temporal meningioma resection. 8. Bladder cancer with previous urostomy. 9. Tobacco abuse. PLAN: The overall plan of care is based on the preadmission screen and information garnered from therapy assessments. 1. Estimated length of stay is probably fairly short. We would anticipate he should be able to discharge within 7-10 days. 2. Medical prognosis is reasonably good. 3. Anticipated interventions includes the interdisciplinary acute inpatient rehabilitation program. 4. Anticipated functional outcomes would be for the patient to become modified independent with transfers, mobility, ADLs as well as cognition and comprehension, so that he can return back to the home setting. 5. Discharge destination would be back home with his . She is planning on doing some FMLA time at home with him and we discussed this today. 6. Expected therapy by discipline includes PT, OT and speech 1 hour per day each five days a week throughout the duration [place] [address] REHAB UNIT PLAN OF CARE Name: ADDI CADENA Room #: 514-P [facility] IN [facility]#: [id number] Admission: 09/19/20 Attend Phys: Adrián Nagel MD Discharge: Date of : 40 Report #: [id number] rehabilitation stay. ADDENDUM: The patient's prognosis for significant practical improvement within a reasonable period of time appears good. Given the patient's complex medical condition and risk of further medical complication, rehabilitation services could not be safely provided at a lower level of care such as a prison facility. <ELECTRONICALLY SIGNED> By: Adrián Nagel MD 09/25/20 1505 1405 1652 Adrián Nagel MD /IRIS
--- NOTE | 2020-09-25 17:54 | NUR ---
PT ALERT AND ORIENTED TIMES FOUR. VSS. PT DENIES PAIN/SOA. PT TOLERATES MEDS AND MEALS. PT WORKED WELL WITH PT/OT TODAY. PT AT BEDSIDE THIS AFTERNOON. PT EXCITED FOR POSSIBLE DISCHARGE HOME TOMORROW.
[2020-09-25 19:38] VITALS: BP 99/50
--- NOTE | 2020-09-26 03:14 | NUR ---
ASSUMED CARE OF PT AT SHIFT CHANGE. PT IS AOX4 AND LETS NEEDS BE KNOWN. FALL PRECAUTION IN PLACE. PT DENIED PAIN NAUSEA OR SOA. ASSESSMENT CHARTED. PT ASKED FOR MEDS IN A TIMELY MANNER. UROSTOMY IN PLACE AND IS CONEECTED TO A DRAINAGE BAG. PT WAS ABLE TO GET COMFORTABLE AND SLEEP PART OF THE SHIFT. VSS AND NO S/S OF ACUTE DISTRESS. WILL CONTINUE TO MONITOR.
[2020-09-26 07:15] VITALS: BP 101/57
[2020-09-26] MEDS ORDERED: LIPITOR40 MG PO (08:33)
[2020-09-26] MEDS ORDERED: PACERONE 200 M200 M1 PO ×2 (08:33→10:03)
[2020-09-26] MEDS ORDERED: NITROGLYCERIN0.4 MG SUBLING (08:33)
[2020-09-26] MEDS ORDERED: DEMADEX20 MG PO (08:33)
[2020-09-26 09:47] VITALS: BP 101/57
--- NOTE | 2020-09-26 09:53 | NUR ---
dcp for today, home with , she going to talk fmla to stay with him. cm delivered life alert brochure and senior blue book. kourtney will be here around noon to pick him up. rx for outpt physical therapy placed on front of chart by bedside nurse.
[2020-09-26] MEDS ORDERED: VITAMIN D325 MC1 PO (11:16)
[2020-09-26] MEDS ORDERED: XARELTO15 MG PO (11:16)
[2020-09-26] MEDS ORDERED: MIDODRINE HCL2.5 M1 PO (11:16)
--- NOTE | 2020-09-26 13:30 | NUR ---
PT ALERT AND ORIENTED TIMES FOUR. VSS. PT DENIES PAIN/SOA. PT TOLERATES MEDS AND MEALS. PLANS FOR DISCHARGE TODAY. WILL CONTINUE TO MONITOR.
== END 2020-09-26 12:45 | disposition home or self-care (01) | DRG 947 ==
PROVIDERS: Internal Medicine; Nurse Practitioner; ADMIT Physical Medicine & Rehabilitation; ATTEND Physical Medicine & Rehabilitation
DX: R53.81 Other malaise (principal); I21.4 Non-ST elevation (NSTEMI) myocardial infarction; J18.9 Pneumonia, unspecified organism; J96.01 Acute respiratory failure with hypoxia; I50.21 Acute systolic (congestive) heart failure; I42.9 Cardiomyopathy, unspecified; J44.1 Chronic obstructive pulmonary disease with (acute) exacerbation; J44.0 Chronic obstructive pulmonary disease with (acute) lower respiratory infection; N17.9 Acute kidney failure, unspecified; E87.1 Hypo-osmolality and hyponatremia; N18.9 Chronic kidney disease, unspecified; G40.909 Epilepsy, unspecified, not intractable, without status epilepticus; F01.50 Vascular dementia, unspecified severity, without behavioral disturbance, psychotic disturbance, mood disturbance, and anxiety; I48.0 Paroxysmal atrial fibrillation; E87.6 Hypokalemia; E83.42 Hypomagnesemia; I95.9 Hypotension, unspecified; Z79.01 Long term (current) use of anticoagulants; Z85.51 Personal history of malignant neoplasm of bladder
CPT/HCPCS: 10112

== ENCOUNTER → 2020-10-03 | Outpatient (CLI) | payer OTHER, BC ==
[~2020-10-03] MED LIST changes: +ELIQUIS2.5 MG PO; +MIDODRINE HCL2.5 M1 PO; +VITAMIN D325 MC1 PO
== END ==
LOC: SJCVC 10:48
PROVIDERS: ATTEND Internal Medicine Cardiovascular Disease
DX: R94.31 Abnormal electrocardiogram [ECG] [EKG] (principal); I45.10 Unspecified right bundle-branch block; I25.2 Old myocardial infarction; N18.9 Chronic kidney disease, unspecified; G40.909 Epilepsy, unspecified, not intractable, without status epilepticus; I25.5 Ischemic cardiomyopathy; F17.200 Nicotine dependence, unspecified, uncomplicated; Z88.8 Allergy status to other drugs, medicaments and biological substances; Z79.899 Other long term (current) drug therapy

== ENCOUNTER → 2020-10-10 | Outpatient (CLI) | payer OTHER, BC | LOC: SJCVCIMAG 10:00 | PROVIDERS: ATTEND Internal Medicine Cardiovascular Disease | DX: I45.10 Unspecified right bundle-branch block (principal); R06.00 Dyspnea, unspecified; I48.0 Paroxysmal atrial fibrillation; G90.9 Disorder of the autonomic nervous system, unspecified; J44.9 Chronic obstructive pulmonary disease, unspecified; I25.2 Old myocardial infarction; N18.9 Chronic kidney disease, unspecified; I51.81 Takotsubo syndrome; F17.200 Nicotine dependence, unspecified, uncomplicated; Z88.8 Allergy status to other drugs, medicaments and biological substances; Z79.899 Other long term (current) drug therapy ==

== ENCOUNTER 2020-12-19 15:48 | Inpatient (IN) | payer OTHER, BC ==
[~2020-12-19] VITALS: Ht 177.8 cm; Wt 66.7 kg
--- NOTE | ~2020-12-19 | EMS ---
[facility] [address] [place] [address] EMS Patient Care Report Name: ADDI CADENA Room #: 209-P ADM IN M.R.#: [id number] Admission: 12/19/20 Attend Phys: Flaca Finley MD Discharge: Date of : 40 Report #: [id number] THIS REPORT FOR: //name// Report Transmitted: 12/20/2020 16:50 EMS Care Summary [place], [place]/[facility] Incident [id number] @ 12/19/2020 15:03 Incident Location [address] [place] [address] Patient ADDI CADENA Male, 80 Years 1940 Patient Address [address] [place] [address] Patient History Hypertension (HTN),Hyperlipidemia,Myocardial Infarction (OK), Patient Allergies Intravenous Dye, Patient Medications Keppra, Lamictal, Xarelto, Vitamin D, Lipitor, Midodrine, Trazodone, Chief Complaint I can't breathe Disposition Transported No Lights/[place] Dispatch Reason Breathing Problem Transported To [facility] Narrative Called for SOB. Upon arrival, P45 on the scene, pt was MANN x [address]. It was reported he had a sudden onset of SOB with exertion while getting up to go to the restroom. He has a hx of COPD and cardiac issues. He also c/o chest tightness. Pt appeared to have CBBS, but they were diminished. [facility] [address] [place] [address] EMS Patient Care Report Name: ADDI CADENA Room #: 209-P ADM IN M.R.#: [id number] Admission: 12/19/20 Attend Phys: Flaca Finley MD Discharge: Date of : 40 Report #: [id number] He was moved to the EMS cot and loaded into the ambulance w/o incident. Vitals and 12 lead obtained. Attempted IV x 2 w/o success. Pt was doing better with the O2. Vitals repeated. En route: no changes. RR to ER. Arrived: pt taken to ER and moved to their bed w/o incident. Pt care & report to ER staff. Initial Vitals @15:38P: 90,SpO2: 99, @15:18P: 93,SpO2: 99,OK Suspected: true @15:35P: 90,CO: 0,SpO2: 100, @15:15P: 97,R: 20,BP: 185/94,Pain: 0/10,GCS: 15,CO: 0,SpO2: 97,Revised Trauma: 12, @15:39P: 88,R: 20,BP: 164/75,Pain: 0/10,GCS: 15,SpO2: 99,Revised Trauma: 12, @15:24P: 94,R: 20,BP: 157/80,Pain: 0/10,GCS: 15,Glucose: 141,CO: 0,SpO2: 99,Revised Trauma: 12, @15:19P: 92,R: 16,BP: 177/84,Pain: 0/10,GCS: 15,CO: 1,SpO2: 98,Revised Trauma: 12, Assessments @15:12MENTAL:Person Oriented,Time Oriented,Place Oriented,Event Oriented,SKIN:Other,Pale,HEENT:LUNG SOUNDS:ABDOMEN:PELVIS//GI:EXTREMITIES:Left Arm: No Abnormalities,Right Arm: No Abnormalities,Left Leg: No Abnormalities,Right Leg: No Abnormalities,PULSE:Radial: 2+ Normal,NEURO:No Abnormalities, Impression Acute Respiratory Distress (Dyspnea) Procedures @15:26Aspirin - 324 Milligrams (mg) - OralResponse: Unchanged@15:19Saline Lock cc (20 ga) Site: Hand-LeftResponse: UnchangedFailed@15:22Saline Lock cc (20 ga) Site: Hand-RightResponse: UnchangedFailed@15:3812-Lead ECGResponse: UnchangedSucceeded@15:1812-Lead ECGResponse: UnchangedSucceeded@15:13StretcherResponse: Unchanged@15:163-Lead ECGResponse: UnchangedSucceeded@15:12ALS AssessmentResponse: UnchangedSucceeded@PTAOxygen FlowRate: 6 Device: Nasal Cannula (NC) Response: UnchangedSucceeded Timeline SENIOR ASSET MANAGER,Oxygen FlowRate: 6 Device: Nasal Cannula (NC) Response: UnchangedSucceeded, 15:01,Call Received 15:01,Dispatch Notified 15:03,Dispatched 15:04,En Route 15:11,On Scene 15:12,At Patient 15:12,ALS Assessment,Response: UnchangedSucceeded, 15:13,Stretcher,Response: Unchanged [facility] [address] [place] [address] EMS Patient Care Report Name: ADDI CADENA Room #: 209-P [facility] IN M.R.#: [id number] Admission: 12/19/20 Attend Phys: Flaca Finley MD Discharge: Date of : 40 Report #: [id number] 15:15,BP: 185/94 M,PULSE: 97,RR: 20 R,SPO2: 97 Ox,ETCO2: ,BG: ,PAIN: 0,GCS: 15, 15:16,3-Lead ECG,Response: UnchangedSucceeded, 15:18,12-Lead ECG,Response: UnchangedSucceeded, 15:18,BP: / M,PULSE: 93,RR: R,SPO2: 99 Ox,ETCO2: ,BG: ,PAIN: ,GCS: , 15:19,BP: 177/84 M,PULSE: 92,RR: 16 R,SPO2: 98 Ox,ETCO2: ,BG: ,PAIN: 0,GCS: 15, 15:19,Saline Lock cc 20 ga Site: Hand-Left,Response: UnchangedFailed, 15:22,Saline Lock cc 20 ga Site: Hand-Right,Response: UnchangedFailed, 15:24,BP: 157/80 M,PULSE: 94,RR: 20 R,SPO2: 99 Ox,ETCO2: ,B,PAIN: 0,GCS: 15, 15:26,Aspirin - 324 Milligrams (mg) - Oral,Response: Unchanged 15:28,Depart Scene 15:35,BP: / M,PULSE: 90,RR: R,SPO2: 100 Ox,ETCO2: ,BG: ,PAIN: ,GCS: , 15:38,12-Lead ECG,Response: UnchangedSucceeded, 15:38,BP: / M,PULSE: 90,RR: R,SPO2: 99 Ox,ETCO2: ,BG: ,PAIN: ,GCS: , 15:39,BP: 164/75 M,PULSE: 88,RR: 20 R,SPO2: 99 Ox,ETCO2: ,BG: ,PAIN: 0,GCS: 15, 16:01,At Destination 16:01,Call Closed Disclaimer v1.1 Copyright 2020 [employer] This EMS Care Summary contains data elements from the applicable legal record (which may be displayed differently). It is designed to provide pertinent information for the following purposes: continuity of care, clinical quality, and state data reporting. The complete legal record is available to ED staff and administrators of the receiving hospital in [employer] Patient Tracker. All data is provided "as is."
[2020-12-19 15:51] VITALS: BP 161/97
--- NOTE | 2020-12-19 16:06 | EKG ---
[place] [address] [facility] [employer] 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 Drama: RICK THOMPSON : 1940 Requested By: Adrián Dumont Order Number: [id number] MD: Les Ramires Measurements Intervals [place] Rate: 97 P: 83 PA: 171 QRS: -13 QRSD: 136 T: 69 QT: 362 QTc: 460 Interpretive Statements Sinus rhythm Right bundle branch block Compared to ECG 09/19/2020 07:21:54 Right bundle-branch block now present Right ventricular hypertrophy no longer present T-wave abnormality present Possible ischemia lateral leads Electronically Signed On 12-19-2020 16:06:18 CDT by Les Ramires [email or web address] <ELECTRONICALLY SIGNED> By: Les Ramires MD, [facility] 12/19/20 1606 1549 1549 Les Ramires MD, FACC /EPI
[2020-12-19] MEDS ORDERED: LIPITOR40 MG PO (16:12)
[2020-12-19] MEDS ORDERED: LAMICTAL100 MG PO (16:12)
[2020-12-19 16:16] LABS: ABSOLUTE NEUTROPHILS 7.9 thou/uL (1.4-8.2); BASOPHILS 0.9 % (0.0-2.0); EOSINOPHILS 2.7 % (0.0-3.0); HEMATOCRIT 36.8 % (42.0-52.0); HEMOGLOBIN 12.4 gm/dL (14.0-18.0); LYMPHOCYTES 13.5 % (24.0-44.0); MCH 31.5 pg (26.0-34.0); MCHC 33.6 g/dL (28.0-37.0); MCV 93.8 fL (80.0-100.0); MONOCYTES 9.5 % (1.0-8.0); PLATELET COUNT 277 thou/uL (150-400); POLYS 73.4 % (36.0-66.0); RBC 3.93 mil/uL (4.50-6.00); RDW 14.1 % (10.5-14.5); WBC 10.7 thou/uL (4.0-11.0)
[2020-12-19 16:22] LABS: BE(vivo) -4.3 mmol/L (-2 to +3); HCO3 20.2 mmol/L (22.0-26.0); PCO2 35.1 mmHg (35.0-45.0); PO2 78.6 mmHg (80.0-100.0); pH 7.377 (7.360-7.450); sO2 95.5 % (92.0-98.0)
[2020-12-19 16:29] LABS: ANION GAP 7 mmol/L (7-16); BUN 27 mg/dL (7-18); CHLORIDE 101 mmol/L (98-107); CO2 30 mmol/L (21-32); CREATININE 1.5 mg/dL (0.7-1.3); GLUCOSE 121 mg/dL (74-106); POTASSIUM 4.7 mmol/L (3.5-5.1); SODIUM 138 mmol/L (136-145)
[2020-12-19 16:39] LABS: ALBUMIN 4.1 g/dL (3.4-5.0); SGOT 28 U/L (15-37); SGPT 46 U/L (30-65); TOTAL BILIRUBIN 0.4 mg/dL (0.2-1.0); TOTAL PROTEIN 7.2 g/dL (6.4-8.2); TROPONIN-I <0.06 ng/mL (<0.06)
[2020-12-19 18:12] VITALS: BP 117/64
[2020-12-19 19:00] LABS: URINE BILIRUBIN NEGATIVE (Negative); URINE BLOOD 3+ (Negative); URINE CLARITY SL CLOUDY; URINE COLOR YELLOW; URINE GLUCOSE-RANDOM* NEGATIVE (Negative); URINE KETONES NEGATIVE (Negative); URINE NITRITE-REFLEX NEGATIVE (Negative); URINE PROTEIN (DIPSTICK) TRACE (Negative); URINE SPECIFIC GRAVITY <= 1.005 (1.005-1.035); URINE UROBILINOGEN 0.2 E.U./dl (0.2-1.0)
[2020-12-19 19:05] LABS: URINE LEUKOCYTES-REFLEX 3+ (Negative)
[2020-12-19 19:16] LABS: URINE RBC >20 Many /HPF (NONE SEEN)
[2020-12-19 19:17] LABS: CASTS None Seen /LPF (None Seen); CRYSTALS None Seen /LPF (None Seen); SQUAMOUS 0-3 Few /LPF (0-3)
[2020-12-19 20:02] VITALS: BP 126/66
[2020-12-20] VITALS (7 sets, daily range): BP systolic 97–136; BP diastolic 48–67
--- NOTE | 2020-12-20 04:26 | NUR ---
PT IS SLEEPING VITALS STABLE ON ROOM AIR OXYGEN SATUATION HAS BEEN FINE AND NO SHORTNESS OF BREATH NOTED. LUNGS ARE CLEAR. ANDOMEN IS FLAT HAS A ILLEOCONDUIT FOR URINE. NO EDEMEA NOTED. CALLL LIGHT WITHIN REACH IF NEEDS ASSSTANCE.
[2020-12-20 05:09] LABS: ABSOLUTE NEUTROPHILS 11.8 thou/uL (1.4-8.2); BASOPHILS 0.1 % (0.0-2.0); HEMATOCRIT 35.8 % (42.0-52.0); HEMOGLOBIN 11.9 gm/dL (14.0-18.0); LYMPHOCYTES 4.1 % (24.0-44.0); MCH 30.9 pg (26.0-34.0); MCHC 33.2 g/dL (28.0-37.0); MCV 93.1 fL (80.0-100.0); MONOCYTES 1.8 % (1.0-8.0); PLATELET COUNT 268 thou/uL (150-400); RBC 3.85 mil/uL (4.50-6.00); WBC 12.5 thou/uL (4.0-11.0)
[2020-12-20 05:44] LABS: CALCIUM 8.9 mg/dL (8.5-10.1); CREATININE 1.3 mg/dL (0.7-1.3); MAGNESIUM 2.1 mg/dL (1.8-2.4); POTASSIUM 5.1 mmol/L (3.5-5.1)
--- NOTE | 2020-12-20 16:29 | NUR ---
met with patient and at bedside. Patient admits with COPD exacerbation. Patient independent with adls group captain. He and live in independent home in [place]. Steps to basement and patient reports no difficulty. Uses no assistive device. Patient has inhalers at home but no nebulizer. Casemgt following for dc planning.
[2020-12-21 03:38] VITALS: BP 112/66
--- NOTE | 2020-12-21 04:47 | NUR ---
PT IS ALERT AND ORIENTED. FORGETFULL AT TIMES. DIET IS MECH CHOP I THINK HE EATS OTHER THINGS HE IS NOT SUPOSED TOO. VOMITED THIS AM. SUPOSE TO HAVE A VIDEO SWALLOW STUDY DONE SOME TIME.INSTRUCTED HIM NOT TO EAT OR DRINK ANYTHING WITH THE VOMITING . VERBALIZES UNDERSTANDING. CALL LIGHT WITHIN REACH IF NEEDS HELP.
[2020-12-21 07:15] VITALS: BP 113/66
[2020-12-21] MEDS ORDERED: PREDNISONE 20 M20 MG PO (12:09)
[2020-12-21] MEDS ORDERED: LASIX 20 MG TAB20 MG PO (12:09)
[2020-12-21] MEDS ORDERED: CEFDINIR300 MG PO (12:16)
[2020-12-21 13:19] VITALS: BP 105/59
[2020-12-21 13:45] VITALS: BP 105/59
== END 2020-12-21 14:10 | disposition home or self-care (01) | DRG 193 ==
LOC: ER 15:48 → 2N 17:54 → EROBS 17:54 → 2N 19:30
PROVIDERS: Emergency Medicine; Nurse Practitioner; ADMIT Hospitalist; ATTEND Hospitalist
DX: J18.9 Pneumonia, unspecified organism (principal); I50.21 Acute systolic (congestive) heart failure; J96.01 Acute respiratory failure with hypoxia; J96.02 Acute respiratory failure with hypercapnia; J44.1 Chronic obstructive pulmonary disease with (acute) exacerbation; N17.9 Acute kidney failure, unspecified; N39.0 Urinary tract infection, site not specified; R65.10 Systemic inflammatory response syndrome (SIRS) of non-infectious origin without acute organ dysfunction; I51.81 Takotsubo syndrome; F41.9 Anxiety disorder, unspecified; I48.0 Paroxysmal atrial fibrillation; G40.909 Epilepsy, unspecified, not intractable, without status epilepticus; F17.210 Nicotine dependence, cigarettes, uncomplicated; I95.9 Hypotension, unspecified; K59.00 Constipation, unspecified; N18.9 Chronic kidney disease, unspecified; G47.00 Insomnia, unspecified; G90.8 Other disorders of autonomic nervous system; E55.9 Vitamin D deficiency, unspecified; E53.8 Deficiency of other specified B group vitamins; R53.81 Other malaise; Z85.51 Personal history of malignant neoplasm of bladder; I25.2 Old myocardial infarction; Z88.8 Allergy status to other drugs, medicaments and biological substances; Z91.041 Radiographic dye allergy status; Z83.6 Family history of other diseases of the respiratory system; Z71.6 Tobacco abuse counseling
CPT/HCPCS: 10081

== ENCOUNTER 2021-05-07 09:38 | Inpatient (IN) | payer OTHER, BC ==
[~2021-05-07] VITALS: Ht 177.8 cm; Wt 67.1 kg
[~2021-05-07 09:38] MED LIST changes: +CEFDINIR300 MG PO; +LAMICTAL100 MG PO; +LASIX 20 MG TAB20 MG PO
[2021-05-07 09:50] LABS: URINE BILIRUBIN NEGATIVE (Negative); URINE BLOOD 3+ (Negative); URINE COLOR YELLOW; URINE GLUCOSE-RANDOM* NEGATIVE (Negative); URINE KETONES NEGATIVE (Negative); URINE NITRITE-REFLEX NEGATIVE (Negative); URINE PROTEIN (DIPSTICK) 1+ (Negative); URINE UROBILINOGEN 0.2 E.U./dl (0.2-1.0)
[2021-05-07 09:54] LABS: URINE CLARITY CLOUDY; URINE LEUKOCYTES-REFLEX 3+ (Negative)
[2021-05-07] MEDS ORDERED: FORACORT INH (09:59)
[2021-05-07] MEDS ORDERED: ASTHALIN INH (10:00)
[2021-05-07 10:02] LABS: ABSOLUTE NEUTROPHILS 12.3 thou/uL (1.4-8.2); BASOPHILS 0.3 % (0.0-2.0); EOSINOPHILS 0.7 % (0.0-3.0); HEMATOCRIT 34.9 % (42.0-52.0); HEMOGLOBIN 11.5 gm/dL (14.0-18.0); LYMPHOCYTES 6.2 % (24.0-44.0); MCH 30.3 pg (26.0-34.0); MCHC 32.8 g/dL (28.0-37.0); MCV 92.3 fL (80.0-100.0); MONOCYTES 7.7 % (1.0-8.0); PLATELET COUNT 326 thou/uL (150-400); POLYS 85.1 % (36.0-66.0); RBC 3.79 mil/uL (4.50-6.00); RDW 14.1 % (10.5-14.5); WBC 14.5 thou/uL (4.0-11.0)
[2021-05-07 10:06] LABS: CASTS None Seen /LPF (None Seen); SQUAMOUS 0-3 Few /LPF (0-3)
[2021-05-07 10:07] LABS: MUCUS 4-6 Moderate strn/LPF (None Seen)
[2021-05-07 10:09] LABS: TRIPLE PHOSPHATE CRYSTALS >10 Many /LPF (None Seen); URINE WBC-REFLEX 6-15 Few /HPF (0-5)
[2021-05-07 10:10] LABS: AMORPHOUS PHOSPHATES Few /LPF (None Seen); BACTERIA-REFLEX >30 Many /HPF (None Seen); URINE RBC 1-2 Rare /HPF (NONE SEEN)
[2021-05-07 10:16] LABS: CALCIUM 9.2 mg/dL (8.5-10.1); CREATININE 2.2 mg/dL (0.7-1.3); POTASSIUM 5.2 mmol/L (3.5-5.1)
[2021-05-07 10:26] LABS: ALBUMIN 3.5 g/dL (3.4-5.0); DIRECT BILIRUBIN 0.1 mg/dL (<0.1-0.2); TOTAL BILIRUBIN 0.5 mg/dL (0.2-1.0); TOTAL PROTEIN 7.5 g/dL (6.4-8.2)
--- NOTE | 2021-05-07 10:38 | EKG ---
[address] [address] ELECTROCARDIOGRAM REPORT Name: TAMMIMORRISADDI Jewels Room #: [facility]#: [id number] Admission: Attend Phys: Discharge: Date of : 40 Report #: [id number] [facility] ED Test Date: 2021-05-07 Test Time: 09:43:03 Pat Name: ADDI CADENA Department: Room: Gender: Testing Tech: OSVALDO : 1940 Requested By: Jeovanny Zamudio Order Number: [id number] MD: Les Ramires Measurements Intervals [place] Rate: 94 P: 89 MI: 188 QRS: 71 QRSD: 137 T: 50 QT: 354 QTc: 443 Interpretive Statements Sinus rhythm Right bundle branch block Compared to ECG 12/19/2020 15:49:31 No significant change Electronically Signed On 05-07-2021 10:37:44 CDT by Les Ramires [email or web address] <ELECTRONICALLY SIGNED> By: Les Ramires MD, [facility] 05/07/21 1037 0943 0943 Les Ramires MD, FACC /EPI
--- NOTE | 2021-05-07 10:38 | EKG ---
[address] [address] ELECTROCARDIOGRAM REPORT Name: ADDI CADENA Room #: [facility]#: [id number] Admission: Attend Phys: Discharge: Date of : 40 Report #: [id number] [facility] ED Test Date: 2021-05-07 Test Time: 09:54:00 Pat Name: ADDI CADENA Department: Room: Gender: Microfilmer: OSVALDO : 1940 Requested By: Jeovanny Zamudio Order Number: [id number] MD: Les Ramires Measurements Intervals [place] Rate: 91 P: 77 [place]: 165 QRS: 75 QRSD: 139 T: 66 QT: 364 QTc: 448 Interpretive Statements Sinus rhythm Right bundle branch block Lateral leads are also involved Compared to ECG 05/07/2021 09:43:03 ST (T wave) deviation no longer present Electronically Signed On 05-07-2021 10:37:56 CDT by Les Ramires [email or web address] <ELECTRONICALLY SIGNED> By: Les Ramires MD, FACC 05/07/21 1037 0954 09 Les Ramires MD, FACC /EPI
[2021-05-07 14:32] VITALS: BP 120/65
[2021-05-07 15:00] VITALS: BP 112/68
[2021-05-07 15:35] VITALS: BP 107/60
[2021-05-07 19:35] VITALS: BP 117/69
--- NOTE | 2021-05-07 19:38 | NUR ---
[age] YEAR OLD MALE ADMITTED TO [facility] ROOM 459. PT WAS BROUGHT INTO THE ER DUE TO HAVING SOA FOR A FEW DAYS. PT ALERT AND ORIENTED TIMES FOUR, BUT VERY SAVOONGA. PT DENIES PAIN/SOA ON ADMISSION ASSESSMENT. PT TOLEARTES MEALS. PT AT BEDSIDE WILL CONTINUE TO MONITOR.
[2021-05-08 04:10] VITALS: BP 132/59
--- NOTE | 2021-05-08 05:51 | NUR ---
Pt. rested quietly during the night when checked on during frequent rounds. He offers no c/o pain or discomfort. Bed alarm is on.
[2021-05-08 06:10] LABS: HEMATOCRIT 31.2 % (42.0-52.0); HEMOGLOBIN 10.5 gm/dL (14.0-18.0); MCH 30.6 pg (26.0-34.0); MCHC 33.7 g/dL (28.0-37.0); MCV 90.9 fL (80.0-100.0); RBC 3.43 mil/uL (4.50-6.00); WBC 8.1 thou/uL (4.0-11.0)
[2021-05-08 06:29] LABS: CALCIUM 8.6 mg/dL (8.5-10.1); CREATININE 1.5 mg/dL (0.7-1.3); MAGNESIUM 1.9 mg/dL (1.8-2.4); POTASSIUM 5.3 mmol/L (3.5-5.1)
[2021-05-08 08:04] VITALS: BP 112/54
--- NOTE | 2021-05-08 08:59 | NUR ---
PT REFUSES OT EVAL STATES DOES NOT NEED.
[2021-05-08 12:00] VITALS: BP 115/62
--- NOTE | 2021-05-08 13:34 | 2DMMODE ---
[facility] [email or web address] [place] [address] 2 D/M-MODE ECHOCARDIOGRAM Name: ADDI CADENA Room #: 459-P ADM IN M.R.#: [id number] Admission: 05/07/21 Attend Phys: Sunday Raya MD Discharge: Date of : 40 Report #: [id number] THIS REPORT FOR: cc: Florentin Jamil James R. DO Park, Jin S. MD ~ APPROVED REPORT Study performed: 05/08/2021 12:15:47 EXAM: Comprehensive 2D, Doppler, and color-flow Echocardiogram Patient Location: Bedside Room #: 459 Status: routine BSA: 1.84 HR: 95 bpm BP: 112/54 mmHg Rhythm: NSR Other Information Study Quality: Adequate Indications COPD Atrial Fibrillation Dyspnea Cardiomyopathy 2D Dimensions IVC: 18.00 mm Aortic Valve AoV Peak Carloz.: 1.28 m/s AO Peak Gr.: 6.57 mmHg LVOT Max P.12 mmHg LVOT Max V: 0.88 m/s Mitral Valve E/A Ratio: 0.9 MV Decel. Time: 284.68 ms MV E Max Carloz.: 0.89 m/s MV A Carloz.: 1.03 m/s MV PHT: 82.56 ms IVRT: 92.27 ms [facility] [email or web address] [place] [address] 2 D/M-MODE ECHOCARDIOGRAM Name: ADDI CADENA Jewels Room #: 459-P [facility] IN ..#: [id number] Admission: 05/07/21 Attend Phys: Sunday Raya, Discharge: Date of : 40 Report #: [id number] Pulmonary Valve PV Peak Carloz.: 0.45 m/s PV Peak Gr.: 0.81 mmHg Pulmonary Vein P Vein S: 0.36 m/s P Vein A: 0.30 m/s P Vein D: 0.21 m/s P Vein A Dur.: 110.7 msec P Vein S/D Ratio: 1.71 Tricuspid Valve TR Peak Carloz.: 2.52 m/s TR Peak Gr.: 25.47 mmHg PA Pressure: 30.00 mmHg Left Ventricle The left ventricle is normal size. There is normal LV segmental wall motion. There is normal left ventricular wall thickness. Left ventricular systolic function is normal. The left ventricular ejection fraction is within the normal range. LVEF is 60-65%. Grade I - abnormal relaxation pattern. Right Ventricle The right ventricle is normal size. The right ventricular systolic function is normal. Atria The left atrium size is normal. The right atrium size is normal. Aortic Valve The aortic valve is normal in structure. No aortic regurgitation is present. There is no aortic valvular stenosis. Mitral Valve The mitral valve is normal in structure. There is no mitral valve regurgitation noted. No evidence of mitral valve stenosis. Tricuspid Valve The tricuspid valve is normal in structure. There is mild tricuspid regurgitation. Estimated PAP 30 mmHg. Pulmonic Valve The pulmonary valve is normal in structure. There is no pulmonic valvular regurgitation. Great Vessels The aortic root is normal in size. IVC is normal in size and [facility] [address] [place] [address] 2 D/M-MODE ECHOCARDIOGRAM Name: ADDI CADENA Room #: 459-P ADM IN [facility]#: [id number] Admission: 05/07/21 Attend Phys: Sunday Raya, Discharge: Date of : 40 Report #: [id number] collapses >50% with inspiration. Pericardium There is no pericardial effusion. <Conclusion> The left ventricle is normal size. There is normal left ventricular wall thickness. Left ventricular systolic function is normal. Grade I - abnormal relaxation pattern. The right ventricle is normal size. The left atrium size is normal. The aortic valve is normal in structure. There is no mitral valve regurgitation noted. There is mild tricuspid regurgitation. Estimated PAP 30 mmHg. <ELECTRONICALLY SIGNED> By: Geovani Walsh MD 05/08/21 1334 1334 133 Geovani Walsh MD /INF
--- NOTE | 2021-05-08 15:57 | NUR ---
PT ADMITTED RELATED TO OLMOS, POSSIBLE COPD EXACERBATION, MULTIFOCAL PNA. CM REVIEWED CHART AND SPOKE WITH CARE TEAM. CM MET WITH PT'S SPOUE THIS DAY. SHE INDICATED THAT THEY RESIDE IN A HOUSE IN [facility]. SHE INDICATED A FEW STEPS TO ENTER AND NONE PT USES INSIDE. 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 SPOUSE INDICATED THAT PT HAS 02 FOR HOME USE BUT SHE MAY HAVE MEANT A MEBULIZER. CM WILL CLARIFY. PT SAW PT AND DISCHARGED INDICATING NO DIFFICULTY WITH MOBILITY. PT'S SPOUSE INDICATED SHE WOULD PREFERR DC THURSDAY RATHER THEN TOMORROW SHE WOULDN'T BE ABLE TO GET HIM UNTIL LATER IN [place]. CM FOLLOWING REGARDING DC PLANNING.
[2021-05-08 16:41] VITALS: BP 130/50
[2021-05-08 19:58] VITALS: BP 139/61
[2021-05-09 00:44] VITALS: BP 118/66
[2021-05-09 04:50] VITALS: BP 112/60
--- NOTE | 2021-05-09 05:37 | NUR ---
ASSUMED CARE OF PT AT 1900. PT ASSESSED TO BE 80M AOX2-3 WITH RESOLVING MULTIFOCAL PNEUMONIA. PT IS CLEAR ON RA, UROSTOMY PATENT, NO PAIN, AND IS ABLE TO AMBULATE SBA BUT REFUSES WALKER. MAY GO HOME ON ANTIBIOTICS IN AM. PT EXPERIENCES SOME SUNDOWNING WITH ANXIETY THROUGHOUT THE NIGHT BUT IS ABLE TO BE REORIENTED AND REDIRECTED. PT IS ABLE TO PICK HIM UP TOMORROW EVENING IF MD DECIDES TO DC PT. WILL CONT TO MONITOR.
[2021-05-09 05:44] LABS: HEMATOCRIT 32.3 % (42.0-52.0); HEMOGLOBIN 10.9 gm/dL (14.0-18.0); MCH 30.5 pg (26.0-34.0); MCHC 33.6 g/dL (28.0-37.0); MCV 90.8 fL (80.0-100.0); RBC 3.56 mil/uL (4.50-6.00); RDW 14.3 % (10.5-14.5); WBC 13.9 thou/uL (4.0-11.0)
[2021-05-09 06:16] LABS: CALCIUM 9.5 mg/dL (8.5-10.1); CREATININE 1.6 mg/dL (0.7-1.3); MAGNESIUM 1.9 mg/dL (1.8-2.4); POTASSIUM 4.9 mmol/L (3.5-5.1)
[2021-05-09 07:24] VITALS: BP 120/72
[2021-05-09] MEDS ORDERED: PREDNISONE 10 M10 M1 PO (09:44)
[2021-05-09] MEDS ORDERED: LEVOFLOXACIN750 MG PO (09:47)
--- NOTE | 2021-05-09 11:23 | NUR ---
Assumed pt care this am, was confused during shift change wanting to go home. Family member called this am stating that pt had called her and was confused and said he was lost and wanted the staff to know. Very forgetful and would remove telemetry box. Tele dc. POC followed with no signs or verbalizations of distress noted.
[2021-05-09 11:48] VITALS: BP 120/72
--- NOTE | 2021-05-09 12:01 | NUR ---
CARE TEAM INDICATED THAT PT IS MEDICALLY STABLE TO DISCHARGE HOME THIS DAY. PT TO DC HOME TO SELF CARE. PT'S DTR TO TRANSPORT HOME THIS DAY. NO OTHER CM INTERVENTION INDICATED. CASE CLOSED.
== END 2021-05-09 12:36 | disposition home or self-care (01) | DRG 871 ==
LOC: ER 09:38 → 4W 11:16 → EROBS 11:16 → 4W 15:13
PROVIDERS: Student in an Organized Health Care Education/Training Program; ADMIT Internal Medicine; ATTEND Internal Medicine
DX: A41.9 Sepsis, unspecified organism (principal); J18.9 Pneumonia, unspecified organism; N17.0 Acute kidney failure with tubular necrosis; J44.0 Chronic obstructive pulmonary disease with (acute) lower respiratory infection; N39.0 Urinary tract infection, site not specified; I13.0 Hypertensive heart and chronic kidney disease with heart failure and stage 1 through stage 4 chronic kidney disease, or unspecified chronic kidney disease; E46 Unspecified protein-calorie malnutrition; I42.9 Cardiomyopathy, unspecified; J44.1 Chronic obstructive pulmonary disease with (acute) exacerbation; N18.9 Chronic kidney disease, unspecified; I50.9 Heart failure, unspecified; G90.9 Disorder of the autonomic nervous system, unspecified; E87.5 Hyperkalemia; Z20.822 Contact with and (suspected) exposure to COVID-19; F41.9 Anxiety disorder, unspecified; I48.0 Paroxysmal atrial fibrillation; G90.8 Other disorders of autonomic nervous system; Z66 Do not resuscitate; E78.5 Hyperlipidemia, unspecified; R53.81 Other malaise; I95.9 Hypotension, unspecified; G40.909 Epilepsy, unspecified, not intractable, without status epilepticus; I25.2 Old myocardial infarction; Z68.21 Body mass index [BMI] 21.0-21.9, adult; Z88.8 Allergy status to other drugs, medicaments and biological substances; Z85.51 Personal history of malignant neoplasm of bladder; Z91.041 Radiographic dye allergy status; Z86.711 Personal history of pulmonary embolism; Z87.891 Personal history of nicotine dependence; Z71.6 Tobacco abuse counseling; Z83.6 Family history of other diseases of the respiratory system; Z79.899 Other long term (current) drug therapy
CPT/HCPCS: 10045

== ENCOUNTER → 2021-08-15 | Outpatient (CLI) | payer OTHER, BC ==
[~2021-08-15] MED LIST changes: +ASTHALIN INH; +FORACORT INH; +LEVOFLOXACIN750 MG PO; +PREDNISONE 10 M10 M1 PO
== END ==
LOC: SJCVCIMAG 07:22 → SJCVC 08:51 → SJCVCIMAG 12:44
PROVIDERS: ATTEND Internal Medicine Cardiovascular Disease
DX: I08.2 Rheumatic disorders of both aortic and tricuspid valves (principal); I42.9 Cardiomyopathy, unspecified; I21.4 Non-ST elevation (NSTEMI) myocardial infarction; J44.9 Chronic obstructive pulmonary disease, unspecified